=== PATIENT | male | born 2000 | race Caucasian/White ===

== ENCOUNTER 2021-09-11 17:34 | Emergency (ER) | payer SELFPAY ==
[~2021-09-11] VITALS: Ht 190.5 cm; Wt 88.6 kg
[2021-09-11 18:06] VITALS: TEMP 98.3
[2021-09-11 20:02] VITALS: BP 134/83; PULSE 68
== END 2021-09-11 20:02 | disposition home or self-care (01) ==
LOC: COL.ER 17:34
DX: S52.501A Unspecified fracture of the lower end of right radius, initial encounter for closed fracture (principal); V43.92XA Unspecified car occupant injured in collision with other type car in traffic accident, initial encounter